=== PATIENT | female | born 1950 | race Two or more races ===

== ENCOUNTER → 2019-07-10 14:29 | Outpatient (BNVA) | payer MEDICAID, SELFPAY | PROVIDERS: Family Provider Nurse Practitioner Family; PCP Nurse Practitioner Family; Visit Provider Specialist | DX: Z48.89 Encounter for other specified surgical aftercare (principal); Z96.651 Presence of right artificial knee joint | CPT/HCPCS: 73560; 73565 ==

== ENCOUNTER → 2020-08-30 15:02 | Outpatient (BNVA) | payer MEDICAID, SELFPAY | PROVIDERS: Family Provider Nurse Practitioner Family; PCP Nurse Practitioner Family; Visit Provider Specialist | DX: Z96.651 Presence of right artificial knee joint (principal) | CPT/HCPCS: 73560; 73565 ==

== ENCOUNTER → 2020-10-06 15:25 | Outpatient (BNVA) | payer MEDICAID, SELFPAY | PROVIDERS: Family Provider Nurse Practitioner Family; PCP Nurse Practitioner Family; Visit Provider Specialist | DX: Z96.651 Presence of right artificial knee joint (principal); M25.519 Pain in unspecified shoulder; M19.011 Primary osteoarthritis, right shoulder | CPT/HCPCS: 73030 ==

== ENCOUNTER → 2021-12-29 15:42 | Outpatient (BNVA) | payer MEDICAID, SELFPAY | PROVIDERS: Family Provider Nurse Practitioner Family; PCP Nurse Practitioner Family; Visit Provider Nurse Practitioner Family | DX: M25.50 Pain in unspecified joint (principal) | CPT/HCPCS: 80053; 85025 ==

== ENCOUNTER 2022-07-14 14:08 | Outpatient (CLI) | payer MEDICAID, SELFPAY ==
--- NOTE | 2022-07-14 14:30 | MR_ITS ---
WS: [id number] MRI CERVICAL SPINE NONCONTRAST HISTORY: Chronic neck pain. COMPARISON: None available. Technique: Multiplanar, multisequence noncontrast imaging of the cervical spine. Mild increase in the cervical lordosis. C4 anterolisthesis by 2 mm. C7, T1 and T2 anterolisthesis by 3.5 mm. Disc spaces are narrowed and desiccated. Osteophytic ridging around the vertebral bodies. No marrow e lucero or acute fracture. Craniocervical junction, C1 and C2 relationship, odontoid process and soft tissues are normal. C2-C3: Normal. C3-C4: Mild osteophytic ridging and mild disc bulging. Mild LEFT facet joint arthritis. Mild LEFT for aminal stenosis. C4-C5: Mild osteophytic ridging and annular disc bulge with mild facet arthritis. Mild central and bi lateral foraminal stenosis. C5-C6: Mild osteophytic ridging and annular disc bulge. Mild facet joint arthritis. Mild central and bilateral foraminal stenosis. C6-C7: Mild osteophytic ridging and disc bulging. Mild facet arthritis. Mild central with moderate fo raminal stenosis. C7-T1: Effacement of CSF. Bilateral disc osteophytes in the foramina. Moderate central with moderate to severe foraminal stenosis. T1-2: Mild central and foraminal stenosis. MR/MR cervical spin wo con* [id number] IMPRESSION: 1. Advanced degenerative disc disease with osteophytosis and facet disease. 2. C7, T1 and T2 anterolisthesis by 3.5 mm. 3. Mild central and moderate foraminal stenosis at C6-7. 4. Moderate central with moderate to severe bilateral foraminal stenosis at C7 -T1. 5. Mild central and bilateral foraminal stenosis at C4-5 and C5-6.
== END 2022-07-14 14:09 | disposition home or self-care (01) ==
PROVIDERS: PCP Nurse Practitioner Family; Visit Provider Nurse Practitioner Family
DX: M50.30 Other cervical disc degeneration, unspecified cervical region (principal); M48.02 Spinal stenosis, cervical region; M48.03 Spinal stenosis, cervicothoracic region
CPT/HCPCS: 72141

== ENCOUNTER → 2022-09-07 14:25 | Outpatient (BNVA) | payer MEDICAID, SELFPAY | PROVIDERS: PCP Nurse Practitioner Family; Visit Provider Dermatology | DX: L81.4 Other melanin hyperpigmentation (principal); Z86.006 Personal history of melanoma in-situ; L82.1 Other seborrheic keratosis; L57.0 Actinic keratosis; L72.0 Epidermal cyst; L57.8 Other skin changes due to chronic exposure to nonionizing radiation; D18.01 Hemangioma of skin and subcutaneous tissue | CPT/HCPCS: 17000; 17003; 99214 ==

== ENCOUNTER → 2022-10-09 10:43 | Outpatient (BNVA) | payer MEDICAID, SELFPAY | PROVIDERS: PCP Nurse Practitioner Family; Referring Provider Nurse Practitioner Family; Visit Provider Anesthesiology Pain Medicine | DX: M54.12 Radiculopathy, cervical region (principal); M48.02 Spinal stenosis, cervical region; M50.30 Other cervical disc degeneration, unspecified cervical region; M43.13 Spondylolisthesis, cervicothoracic region | CPT/HCPCS: 99204 ==

== ENCOUNTER → 2022-11-27 13:34 | Outpatient (BNVA) | payer MEDICAID, SELFPAY | PROVIDERS: PCP Nurse Practitioner Family; Visit Provider Anesthesiology Pain Medicine | DX: M54.12 Radiculopathy, cervical region (principal) | CPT/HCPCS: 62321 ==

== ENCOUNTER → 2023-01-23 14:49 | Outpatient (BNVA) | payer MEDICAID, SELFPAY | PROVIDERS: PCP Nurse Practitioner Family; Referring Provider Anesthesiology Pain Medicine; Visit Provider Orthopaedic Surgery | DX: M54.12 Radiculopathy, cervical region (principal) | CPT/HCPCS: 72040; 99214 ==

== ENCOUNTER → 2023-01-24 14:42 | Outpatient (BNVA) | payer MEDICAID, SELFPAY | PROVIDERS: PCP Nurse Practitioner Family; Visit Provider Nurse Practitioner Family | DX: I10 Essential (primary) hypertension (principal); Z13.820 Encounter for screening for osteoporosis | CPT/HCPCS: 80053; 80061 ==

== ENCOUNTER → 2023-08-09 14:00 | Outpatient (BNVA) | payer MEDICAID, SELFPAY | PROVIDERS: PCP Nurse Practitioner Family; Visit Provider Dermatology | DX: D48.5 Neoplasm of uncertain behavior of skin (principal); L82.1 Other seborrheic keratosis; D18.01 Hemangioma of skin and subcutaneous tissue; L81.4 Other melanin hyperpigmentation; L57.8 Other skin changes due to chronic exposure to nonionizing radiation; D23.71 Other benign neoplasm of skin of right lower limb, including hip; L70.8 Other acne; Z86.006 Personal history of melanoma in-situ | CPT/HCPCS: 17000; 69100; 99213 ==

== ENCOUNTER → 2023-09-10 09:13 | Outpatient (BNVA) | payer MEDICAID, SELFPAY | PROVIDERS: PCP Nurse Practitioner Family; Visit Provider Dermatology | DX: C44.229 Squamous cell carcinoma of skin of left ear and external auricular canal (principal); L57.0 Actinic keratosis | CPT/HCPCS: 17000; 17311 ==

== ENCOUNTER → 2023-09-24 14:37 | Outpatient (BNVA) | payer MEDICAID, SELFPAY | PROVIDERS: PCP Nurse Practitioner Family; Visit Provider Dermatology | DX: L57.0 Actinic keratosis (principal); L30.4 Erythema intertrigo; L72.3 Sebaceous cyst; D23.22 Other benign neoplasm of skin of left ear and external auricular canal; Z86.006 Personal history of melanoma in-situ; Z85.828 Personal history of other malignant neoplasm of skin | CPT/HCPCS: 17000; 99214 ==

== ENCOUNTER → 2023-11-13 15:28 | Outpatient (BNVA) | payer MEDICAID, SELFPAY | PROVIDERS: PCP Nurse Practitioner Family; Visit Provider Nurse Practitioner Family | DX: I10 Essential (primary) hypertension (principal) | CPT/HCPCS: 80053; 84439; 84443 ==

== ENCOUNTER → 2024-01-16 15:54 | Outpatient (BNVA) | payer MEDICAID, SELFPAY | PROVIDERS: PCP Nurse Practitioner Family; Visit Provider Nurse Practitioner | DX: M17.12 Unilateral primary osteoarthritis, left knee (principal); M16.12 Unilateral primary osteoarthritis, left hip | CPT/HCPCS: 73560; 73565; 99204 ==

== ENCOUNTER → 2024-01-24 14:47 | Outpatient (BNVA) | payer MEDICAID, SELFPAY | PROVIDERS: PCP Nurse Practitioner Family; Visit Provider Dermatology | DX: L57.0 Actinic keratosis (principal); D18.01 Hemangioma of skin and subcutaneous tissue; L57.8 Other skin changes due to chronic exposure to nonionizing radiation; L30.4 Erythema intertrigo; Z85.828 Personal history of other malignant neoplasm of skin; Z86.006 Personal history of melanoma in-situ | CPT/HCPCS: 17000; 99214 ==

== ENCOUNTER → 2024-03-03 14:02 | Outpatient (BNVA) | payer MEDICAID, SELFPAY | PROVIDERS: PCP Nurse Practitioner Family; Visit Provider Podiatrist Foot & Ankle Surgery | DX: M21.611 Bunion of right foot (principal); M21.612 Bunion of left foot; M20.41 Other hammer toe(s) (acquired), right foot; M20.42 Other hammer toe(s) (acquired), left foot | CPT/HCPCS: 73630; 99203 ==

== ENCOUNTER → 2024-06-02 11:17 | Outpatient (BNVA) | payer MEDICAID, SELFPAY | PROVIDERS: PCP Nurse Practitioner Family; Visit Provider Nurse Practitioner Family | DX: I10 Essential (primary) hypertension (principal) | CPT/HCPCS: 80053; 80061 ==

== ENCOUNTER → 2024-07-01 13:38 | Outpatient (BNVA) | payer MEDICAID, SELFPAY | PROVIDERS: PCP Nurse Practitioner Family; Visit Provider Dermatology | DX: D18.01 Hemangioma of skin and subcutaneous tissue (principal); L82.1 Other seborrheic keratosis; D23.71 Other benign neoplasm of skin of right lower limb, including hip; L30.4 Erythema intertrigo; Z85.828 Personal history of other malignant neoplasm of skin; Z08 Encounter for follow-up examination after completed treatment for malignant neoplasm; Z86.006 Personal history of melanoma in-situ; D48.5 Neoplasm of uncertain behavior of skin; L57.0 Actinic keratosis | CPT/HCPCS: 11102; 17000; 99214 ==

== ENCOUNTER → 2024-08-05 10:38 | Outpatient (BNVA) | payer MEDICAID, SELFPAY | PROVIDERS: PCP Nurse Practitioner Family; Visit Provider Nurse Practitioner Family | DX: E87.1 Hypo-osmolality and hyponatremia (principal) | CPT/HCPCS: 80053 ==

== ENCOUNTER → 2024-09-03 13:52 | Outpatient (BNVA) | payer MEDICAID, SELFPAY | PROVIDERS: PCP Nurse Practitioner Family; Visit Provider Nurse Practitioner Family | DX: L57.0 Actinic keratosis (principal); L81.4 Other melanin hyperpigmentation; L57.8 Other skin changes due to chronic exposure to nonionizing radiation; X32.XXXA Exposure to sunlight, initial encounter; L82.1 Other seborrheic keratosis; Z86.006 Personal history of melanoma in-situ; Z08 Encounter for follow-up examination after completed treatment for malignant neoplasm; Z85.828 Personal history of other malignant neoplasm of skin; D48.5 Neoplasm of uncertain behavior of skin | CPT/HCPCS: 11102; 99213 ==

== ENCOUNTER → 2024-09-17 11:04 | Outpatient (BNVA) | payer MEDICAID, SELFPAY | PROVIDERS: PCP Nurse Practitioner Family; Visit Provider Nurse Practitioner Family | DX: E87.1 Hypo-osmolality and hyponatremia (principal) | CPT/HCPCS: 80053 ==

== ENCOUNTER → 2025-01-19 12:38 | Outpatient (BNVA) | payer MEDICAID, SELFPAY | PROVIDERS: PCP Nurse Practitioner Family; Visit Provider Dermatology | DX: L72.0 Epidermal cyst (principal); L81.4 Other melanin hyperpigmentation; L57.8 Other skin changes due to chronic exposure to nonionizing radiation; X32.XXXA Exposure to sunlight, initial encounter; L82.1 Other seborrheic keratosis | CPT/HCPCS: 17000; 99213 ==

== ENCOUNTER → 2025-01-28 10:41 | Outpatient (BNVA) | payer MEDICAID, SELFPAY | PROVIDERS: PCP Nurse Practitioner Family; Visit Provider Nurse Practitioner Family | DX: I10 Essential (primary) hypertension (principal); R10.9 Unspecified abdominal pain; R53.83 Other fatigue | CPT/HCPCS: 80053; 80061; 85025 ==

== ENCOUNTER 2025-02-09 12:23 | Outpatient (CLI) | payer MEDICAID, SELFPAY ==
--- NOTE | 2025-02-09 13:00 | CTR_ITS ---
PROCEDURE INFORMATION: Exam: CT Abdomen And Pelvis With Contrast Exam date and time: 02/09/2025 1:28 PM Age: 75 years old Clinical indication: Abdominal pain; Generalized; Nausea and vomiting and all over abdomen pain and bloating since jan 05; Additional info: R10.9 - unspecified abdominal pain TECHNIQUE: Imaging protocol: Computed tomography of the abdomen and pelvis with contrast. Radiation optimization: All CT scans at this facility use at least one of these dose optimization techniques: automated exposure control; mA and/or kV adjustment per patient size (includes targeted exams where dose is matched to clinical indication); or iterative reconstruction. Contrast material: OMNI 350; Contrast volume: 100 ml; Contrast route: INTRAVENOUS (IV); COMPARISON: CR XR hip LT 2-3V wo/w pel* [id number] 01/07/2024 4:43 PM RADIATION DOSE METRICS: Total DLP (mGy-cm): 249.51 FINDINGS: Liver: Normal. No mass. Gallbladder and biliary ducts: Normal. No calcified stones. No ductal dilation. Pancreas: Normal. No ductal dilation. Spleen: Normal. No splenomegaly. Adrenal glands: Normal. No mass. Kidneys and ureters: Renal cysts are present. No hydronephrosis. Stomach and bowel: Moderate amount of retained stool in the colon from constipation. Multiple fluid and contrast filled loops of small bowel without evidence of obstruction. Appendix: No evidence of appendicitis. Intraperitoneal space: Unremarkable. No free air. No significant fluid collection. Vasculature: Moderate atherosclerosis of the abdominal aorta. Lymph nodes: Unremarkable. No enlarged lymph nodes. Urinary bladder: Diffuse urinary bladder wall thickening despite underdistention. Reproductive: Unremarkable as visualized. Bones/joints: Severe degenerative changes of the visualized spine. There is anterolisthesis of L5-S1. Soft tissues: Unremarkable. CT/CT abdomen pelvis w con* [id number] IMPRESSION: 1. Without obstruction there are nonspecific fluid-filled loops of small bowel which can represent some enteritis. 2. Moderate amount of retained stool in the colon from constipation. COMMENTS: Consistent with the [employer]'s Incidental Findings Committee white paper (J Am Sima Radiol 2018): Any incidental renal lesion less than 1 cm or classified as too small to characterize, or any incidental cystic renal lesion characterized as simple-appearing, is likely benign. No follow-up imaging is recommended for these lesions per consensus recommendations based on imaging criteria.
[2025-02-09] MEDS: iohexol 350 mg/mL 500 mL Btl (per mL) PO (13:32)
[2025-02-09] MEDS: iohexol 350 mg/mL 500 mL Btl (per mL) IV (13:32)
== END 2025-02-09 12:24 | disposition home or self-care (01) ==
LOC: RAD 12:25
PROVIDERS: PCP Nurse Practitioner Family; Visit Provider Nurse Practitioner Family
DX: K59.00 Constipation, unspecified (principal); N28.1 Cyst of kidney, acquired; M47.819 Spondylosis without myelopathy or radiculopathy, site unspecified
CPT/HCPCS: 74177